=== PATIENT | male | born 1960 | race Caucasian/White ===

== ENCOUNTER → 2016-06-09 | Outpatient (CLI) | payer BC ==
[~2016-06-09] MED LIST: MULTTAB58 PO
--- NOTE | 2016-06-09 15:22 | DIAGNOSTIC IMAGING REPORT ---
CHEST 2 VIEWS ROUTINE HISTORY: FEVER COMPARISON: None. FINDINGS: A streaky/hazy opacity within the base of the left lower lobe. The right lung is clear. The heart is normal in size. No pleural effusions. No pneumothorax. IMPRESSION: Streaky/hazy opacity at the base of the left lower lobe which likely represents a developing pneumonia. Recommend one month chest x-ray follow-up to ensure resolution. Electronically signed by: Landen Bone M.D. 06/09/2016 3:20 PM Dictated Date/Time: 06/09/2016 3:17 PM
== END | disposition home or self-care (01) ==
LOC: C.RADPV 14:45
PROVIDERS: ATTEND Family Medicine
DX: R50.9 Fever, unspecified (principal)

== ENCOUNTER → 2016-08-07 | Outpatient (CLI) | payer BC ==
--- NOTE | 2016-08-07 14:58 | DIAGNOSTIC IMAGING REPORT ---
CHEST 2 VIEWS ROUTINE CLINICAL HISTORY: Opacity of lung on imaging study2 mo f/u dyspnea COMPARISON STUDY: 06/09/2016 FINDINGS: Lungs are now considered clear. The potential finding left lung base is no longer identified. No evidence for cardiac enlargement. Diaphragms smooth. IMPRESSION: Negative study of the chest. Improved from the prior study. Electronically signed by: Gentry Fisher M.D. 08/07/2016 2:56 PM Dictated Date/Time: 08/07/2016 2:56 PM
== END | disposition home or self-care (01) ==
LOC: C.RADPV 14:28
PROVIDERS: ATTEND Family Medicine
DX: R91.8 Other nonspecific abnormal finding of lung field (principal)

== ENCOUNTER 2023-07-19 18:51 | Inpatient (IN) ==
[2023-07-19 19:22] LABS: Basophils # (auto) 0.03 K/uL (0.00-0.20); Basophils % (auto) 0.3 %; Eosinophils # (auto) 0.24 K/uL (0.00-0.50); Eosinophils % (auto) 2.7 %; Hematocrit (blood only) 43.6 % (42.0-52.0); Hemoglobin 14.7 g/dl (14.0-18.0); Immature Granulocytes # (auto) 0.04 K/uL (0.01-0.20); Immature Granulocytes % (auto) 0.4 %; Lymphocytes # (auto) 1.34 K/uL (1.20-3.40); Lymphocytes % (auto) 14.9 %; Mean Corpuscular Hemoglobin 30.2 pg (25.0-34.0); Mean Corpuscular Hgb Conc 33.7 g/dL (32.0-36.0); Mean Corpuscular Volume 89.7 fL (80.0-100.0); Mean Platelet Volume 9.7 fL (9.4-12.4); Monocytes # (auto) 1.05 K/uL (0.11-0.59); Monocytes % (auto) 11.7 %; Neutrophils # (auto) 6.27 K/uL (1.40-6.50); Platelet Count 189 K/uL (130-400); RDW Coefficient of Variation 11.7 % (11.5-14.5); RDW Standard Deviation 38.6 fL (36.4-46.3); Red Blood Count 4.86 M/uL (4.70-6.10); White Blood Count 8.97 K/ul (4.8-10.8)
[2023-07-19 19:38] LABS: Albumin Globulin Ratio 1.5 (0.9-2); Albumin Level 4.4 gm/dl (3.4-5.0); BUN Creatinine Ratio 15.1 (10-20); Bilirubin,Total 0.9 mg/dl (0.2-1.0); Calcium 9.3 mg/dl (8.6-10.3); Creatinine Clr Calc Pharmacy 94.5 ml/min; Est GFR (African American) 100.9 ml/min; Est GFR (Non-African American) 87.1 ml/min; Total Protein 7.4 gm/dl (6.0-8.3)
[2023-07-19 19:44] LABS: Troponin I High Sensitivity 3.7 pg/ml (0-20)
[2023-07-19 19:51] LABS: Partial Thromboplastin Ratio 0.9; Partial Thromboplastin Time 24 Seconds (21-31); Prothrombin Time 10.9 Seconds (9.0-12.0)
--- NOTE | 2023-07-19 20:16 | Emergency Department Note ---
<Statement entered by Damion Bland MD - 07/20/23 00:48> Critical Care: I have personally spent 45 minutes of critical care time in direct management of this patient. This includes bedside care, interpretation of diagnostic studies, and testing, discussion with consultants, patient, and family members, and other require inpatient management activities. This 45 minutes is in excess of all separately billable procedures. History of Present Illness General Chief complaint: Rib Injury/Pain Stated complaint: RIB PAIN LET SIDE, SUDDEN ONSET Time Seen by Provider: 07/19/23 19:46 History of Present Illness Maximum Pain Intensity: 4 62-year-old male presents to the emergency department for evaluation of left- sided chest pain. Patient states he had laparoscopic right inguinal hernia repair performed on 07/14/[address] Deluna. He states that the procedure went well without any complication. He notes since the surgery some mild abdominal discomfort and bloating from the gas but was improving. He began doing some mild light exercise/walking over the last few days. He states when he got back this afternoon he noted pain in the left ribs that radiated into his back. It is worse with inhalation. He denies overt chest pain or shortness of breath. Pain is sharp in nature. It does not radiate into the jaw or arm. Denies any worsening abdominal pain, fever/chills, nausea/vomiting, diarrhea/constipation, urinary symptoms. No blood in his urine or stool. He denies history of blood clots and is not on any blood thinner. He does report an abnormal EKG preoperatively and had a stress test performed which was normal. He was taking prescribed oxycodone for the first few days postop but switched to Advil the last few days and has not taken anything for pain today. Home Medications Medication Instructions Recorded Confirmed Type calcium carbonate 600 mg calcium 600 mg PO QAM 07/09/20 07/19/23 History (1,500 mg) tablet (Calcium) magnesium oxide 400 mg (241.3 mg 400 mg PO QAM 07/09/20 07/19/23 History magnesium) tablet multivitamin (Daily Multi-Vitamin 1 tab PO QAM 07/09/20 07/19/23 History tablet) omega-3 fatty acids 1,000 mg 1,000 mg PO QAM 07/09/20 07/19/23 History capsule lorazepam 0.5 mg tablet (Ativan) 0.5 mg PO DAILY PRN anxiety #25 10/06/22 07/19/23 Rx tabs fluticasone propionate 50 1 spray intranasal BID #15.8 mL 12/09/22 07/19/23 Rx mcg/actuation nasal spray,suspension (Flonase Allergy Relief) oxycodone 5 mg tablet 5 - 10 mg (1 - 2 x 5 mg) PO 07/14/23 07/19/23 Rx .[id number] PRN pain, for initial therapy, max 6 tabs per day #15 tabs atorvastatin 40 mg tablet 40 mg PO HS 07/19/23 07/19/23 History Allergies Allergy/AdvReac Type Severity Reaction Status Date / Time No Known Allergies Allergy Verified 07/19/23 22:11 Past Med/Surg History Medical History Raynaud's disease Bulging lumbar disc hx History of basal cell carcinoma Anxiety Reducible right inguinal hernia Hyperlipidemia Surgical History H/O right inguinal hernia repair (07/14/23) Robotic Assisted Right Laparoscopic Inguinal Hernia Repair with Mesh(Right) - Cecil Deluna, , FACS H/O colonoscopy Status post Mohs surgery for basal cell carcinoma Family History Mother Ovarian cancer Father Stroke Diabetes Other Hypertension No family history of adverse response to anesthesia No family history of bleeding disorder Denies family history of Prostate cancer Myocardial infarction Breast cancer Colorectal cancer Social History Smoking Status: Never smoker Second Hand Exposure: No; Do You Dip or Chew Tobacco: No; Hx Alcohol Use: No Hx Substance Use: No Preferred Language: Faroese Communication Ability: Effective Visual Impairment: No Limitations Hearing Ability: Normal Stick Feeder Required: No Beliefs That Will Affect Care: None marital status: Current Living Situation: Spouse and Family Current Living Situation Comment: with son and 2 cats current occupational status: employed current occupation: [employer] How many Children do You have: 2 Other Information That Helps Us Care for You: No Feels Safe at Home: Yes Safety Concerns: Feels Safe At This Time Childhood Exposure to Second-Hand Smoke: No Diet: regular caffeine: Yes (tea) Dental Care, Regularly: Yes Physical Activity Frequency: Daily Seatbelt Use: always Sunscreen Use: Yes Assistive Devices: Glasses Physical Exam Vital Signs Vital Signs - 24 hr 07/19/23 18:55 07/19/23 21:51 07/19/23 21:52 Temperature 36.7 C Temperature Source Temporal Artery Scan Pulse Rate 74 72 72 Pulse Rate from SpO2 Sensor 74 Respiratory Rate 20 22 Respiratory Effort / Characteristics Non-Labored Spontaneous Respiratory Depth Normal Blood Pressure 169/89 H 157/95 H Blood Pressure Mean 115 115 Pulse Oximetry 97 98 Oxygen Delivery Method Room Air Room Air Sepsis Recent Fever Within 48 Hours No Sepsis New/Unexplained Change in Mental Status No Sepsis Action Taken by Nursing No Action Required 07/19/23 22:00 07/19/23 22:30 07/19/23 23:00 Temperature Temperature Source Pulse Rate 80 63 74 Pulse Rate from SpO2 Sensor 80 63 75 Respiratory Rate 20 20 20 Respiratory Effort / Characteristics Respiratory Depth Blood Pressure 198/104 H 162/86 H 179/95 H Blood Pressure Mean 135 111 123 Pulse Oximetry 98 97 99 Oxygen Delivery Method Room Air Room Air Room Air Sepsis Recent Fever Within 48 Hours Sepsis New/Unexplained Change in Mental Status Sepsis Action Taken by Nursing Constitutional: alert and oriented x3. no acute distress. nontoxic HEENT: normocephalic, atraumatic. normal conjunctiva.PERRLA. EOM's grossly intact. Neck: neck is supple, nontender. Respiratory: lungs are clear to auscultation without wheezes, rhonchi, or rales bilaterally. equal chest rise. normal respiratory effort, no accessory muscle use. No reproducible chest wall or rib tenderness Cardiovascular: normal heart sounds without murmur. regular rate and rhythm. GI: abdomen is soft, mildly distended. Nontender. No palpable masses. No rebound tenderness or guarding. No CVA tenderness. Laparoscopic incisions well approximated with skin glue and healing appropriately. No signs of infection. MSK: moves all 4 extremities spontaneously Peripheral vascular: extremities warm and well perfused with palpable pulses. Psych:appropriate mood and affect. Course Administered Medications Heparin Sodium/Dextrose (Heparin Sodium/Dextrose) 25,000 units in 500 mls @ 30 mls/hr IV .[id number] [facility]; Protocol Stop: 08/18/23 23:14 Last Admin: 07/19/23 23:34 Dose: 1,500 units/hr, 30 mls/hr Documented By: MIKAEL Co-signed By: DIAMANTE Morphine Sulfate (Morphine Sulfate 2 Mg/Ml Carp) 2 mg IV Q3H PRN PRN Reason: Pain (1,2,3,4,5) & Pre PT Stop: 08/02/23 23:44 Last Admin: 07/19/23 23:51 Dose: 2 mg Documented By: MIKAEL Discontinued Medications Heparin Sodium (Porcine) (Heparin Sod (Porcine) 1000 Unit/Ml) 7,000 units IV NOW ONE Stop: 07/19/23 23:16 Last Admin: 07/19/23 23:33 Dose: 7,000 units Documented By: MIKAEL Co-signed By: DIAMANTE Heparin Sodium/Dextrose (Heparin Iv Adult Wt-Based Standard W/ Initial Bolus Protocol) 1 each IV NOW STA; Protocol Stop: 07/19/23 22:54 Last Admin: 07/19/23 23:34 Dose: Not Given Documented By: MIKAEL Sodium Chloride (Nss) 500 mls @ 999 mls/hr IV .Q31M ONE Stop: 07/19/23 21:47 Last Infusion: 07/19/23 22:47 Dose: Infused Documented By: Admin: 07/19/23 21:56 Dose: 999 mls/hr Documented By: MIKAEL Ioversol (Optiray 350 500ml) 115 ml IV ONCE ONE Stop: 07/19/23 20:30 Last Admin: 07/19/23 20:29 Dose: 115 ml Documented By: SEAN Morphine Sulfate (Morphine Sulfate 4 Mg/Ml 1 Ml Carp\Vial) 4 mg IV NOW STA Stop: 07/19/23 21:38 Last Admin: 07/19/23 21:56 Dose: 4 mg Documented By: MIKAEL Medical Decision Making Differential Diagnosis Cardiac ischemia, aortic dissection, pulmonary embolism, pneumothorax, pneumonia, pericarditis, myocarditis, esophageal rupture, GERD, cholecystitis, pancreatitis, musculoskeletal, as well as other pathologies. Laboratory Data Attestation: I reviewed the patient's lab results. 07/19/23 19:00 07/19/23 19:00 Lab Results 07/19/23 Range/Units 19:00 WBC 8.97 (4.8-10.8) K/ul RBC 4.86 (4.70-6.10) M/uL Hgb 14.7 (14.0-18.0) g/dl Hct 43.6 (42.0-52.0) % MCV 89.7 (80.0-100.0) fL MCH 30.2 (25.0-34.0) pg MCHC 33.7 (32.0-36.0) g/dL RDW Std Deviation 38.6 (36.4-46.3) fL RDW Coeff of Jaden 11.7 (11.5-14.5) % Plt Count 189 (130-400) K/uL MPV 9.7 (9.4-12.4) fL Immature Gran % (Auto) 0.4 % Neut % (Auto) 70.0 % Lymph % (Auto) 14.9 % Pitkin % (Auto) 11.7 % Eos % (Auto) 2.7 % Baso % (Auto) 0.3 % Neut # (Auto) 6.27 (1.40-6.50) K/uL Lymph # (Auto) 1.34 (1.20-3.40) K/uL Pitkin # (Auto) 1.05 H (0.11-0.59) K/uL Eos # (Auto) 0.24 (0.00-0.50) K/uL Baso # (Auto) 0.03 (0.00-0.20) K/uL Immature Gran # (Auto) 0.04 (0.01-0.20) K/uL PT 10.9 (9.0-12.0) Seconds INR 1.0 (0.9-1.1) APTT 24 (21-31) Seconds PTT Ratio 0.9 Sodium 137 (136-145) mmol/L Potassium 4.0 (3.5-5.1) mmol/L Chloride 101 (98-107) mmol/L Carbon Dioxide 29 (21-32) mmol/L Anion Gap 7 (3-11) BUN 14 (6-23) mg/dl Creatinine 0.93 (0.6-1.4) mg/dl Est Cr Clr Drug Dosing 94.5 ml/min Est GFR ( Amer) 100.9 ml/min Est GFR (Non-Af Amer) 87.1 ml/min BUN/Creatinine Ratio 15.1 (10-20) Glucose 98 (70-99(Fasting)) mg/dl Calcium 9.3 (8.6-10.3) mg/dl Total Bilirubin 0.9 (0.2-1.0) mg/dl AST 47 H (13-39) U/L ALT 66 H (7-52) U/L Alkaline Phosphatase 114 H (34-104) U/L Troponin I High Sens 3.7 (0-20) pg/ml Total Protein 7.4 (6.0-8.3) gm/dl Albumin 4.4 (3.4-5.0) gm/dl Globulin 3.0 (2.5-4.0) gm/dl Albumin/Globulin Ratio 1.5 (0.9-2) Lipase 12 (11-82) U/L Imaging Data Radiologist's Impression: Chest CTA 07/19/23 20:06 CR Exam(s): CTA CHEST IV Amt: 115ml optiray 350 EXAM: CT Angiography Chest With Intravenous Contrast CLINICAL HISTORY: Reason for exam: PE. TECHNIQUE: Axial computed tomographic angiography images of the chest with intravenous contrast. CTDI is 19.59 mGy and DLP is 627.64 mGy-cm. Automated exposure control was utilized for the study. A dose lowering technique was utilized adhering to the principles of ALARA. MIP reconstructed images were created and reviewed. COMPARISON: Chest radiograph 07/19/2023. FINDINGS: Pulmonary arteries: Scattered bilateral pulmonary emboli extending most proximally to the right middle lobar artery. Aorta: No acute findings. No thoracic aortic aneurysm. Lungs: Opacity in the right middle lobe. Pleural space: Unremarkable. No significant effusion. No pneumothorax. Heart: Unremarkable. No cardiomegaly. No significant pericardial effusion. No evidence of RV dysfunction. Bones/joints: No acute fracture. No dislocation. Soft tissues: Unremarkable. Lymph nodes: Unremarkable. No enlarged lymph nodes. IMPRESSION: 1. Scattered bilateral pulmonary emboli extending most proximally to the right middle lobar artery. No evidence of right heart strain. 2. Opacity in the right middle lobe. This may represent a pulmonary infarction. Communications: Call Doctor Pulmonary Embolism Electronically signed by: Armando Vale MD 07/19/23 22:34 PM MDM Narrative 62-year-old male who presents to the emergency department for evaluation of left pleuritic chest pain. Review of pertinent visits and past medical history performed. Vital signs in ED demonstrate hypertensive otherwise within normal limits, afebrile. Patient was seen and evaluated as above. Initial critical pathway orders were placed during a high-volume time while patient was evaluated in triage. IV access was established and labs and imaging were obtained. CBC without leukocytosis or acute anemia. CMP without significant electrolyte abnormalities. Renal function within normal limits. Mild transaminitis, AST 47, ALT 66, alk phos 114. Total bilirubin 0.9. Lipase within normal limits. High-sensitivity troponin nonactionable. EKG per my interpretation demonstrates normal sinus rhythm at a rate of 69 bpm. MS interval 218 MS. Persistent T wave inversion in lead III, aVF when compared to ECG from 07/02/2023. No other changes or ST abnormalities. Chest x-ray unremarkable. Upon my initial evaluation, labs and chest x-ray had resulted. Patient was evaluated in the room and appeared in no acute distress and was nontoxic. They were updated on labs and chest x-ray to this point which are reassuring. He continues to experience significant left-sided chest pain with inhalation. He initially declined pain medication. He was hydrated with 500 mL normal saline fluids. In regards to his mild transaminitis, he denies any abdominal pain, no focal tenderness on exam. No excessive Tylenol use or viral symptoms noted. Given pleuritic chest pain and recent surgical intervention, discussed CT of the chest to rule out pulmonary embolism. He was agreeable to plan. This was performed and demonstrates scattered bilateral pulmonary emboli extending most proximally to the right middle lobar artery. There is no evidence of right heart strain. There is an opacity of the right middle lobe which may represent a pulmonary infarct. Following CT of the chest, patient notes worsening left-sided chest pain and was requesting something for pain. 4 mg IV morphine ordered which did help to alleviate his symptoms. They were updated about CT findings. He has bilateral scattered PEs which is likely the source to his symptoms. There is no evidence of right heart strain. He is hemodynamically stable. Weight-based heparin drip with bolus ordered. Discussed admission to the hospital for anticoagulation and observation. He was agreeable to plan. Case was discussed with hospitalist, Dr. Ellis, who graciously accepted patient to her service for further management. He was admitted in stable condition. Case was discussed with ED attending, Dr. Bland, who agrees with workup and treatment plan Impression & Plan Pulmonary embolism, bilateral, Chest pain, pleuritic, Transaminitis Discharge Plan Visit Data Chief Complaint: Rib Injury/Pain Stated Complaint: RIB PAIN LET SIDE, SUDDEN ONSET ED Provider: Damion Bland ED Midlevel Provider: Soledad Davis Discharge Problem: Pulmonary embolism, bilateral, Chest pain, pleuritic, Transaminitis Patient Disposition: Admitted As Inpatient Discharge Instructions Interventions: ED Discharge Assessment Last Done: 07/19/23 23:45
[2023-07-19] MEDS: OPTIRAY 350 500ml IV ONE (20:29)
[2023-07-19] MEDS: MoRPHine SULFATE 4 MG/ML 1 ML CARP\\VIAL IV STA (21:56)
[2023-07-19] MEDS: SODIUM CHLORIDE 0.9% 500 ML IV ONE (21:56)
--- NOTE | 2023-07-19 22:35 | CT Scan Report ---
Exam(s): CTA CHEST IV Amt: 115ml optiray 350 EXAM: CT Angiography Chest With Intravenous Contrast CLINICAL HISTORY: Reason for exam: PE. TECHNIQUE: Axial computed tomographic angiography images of the chest with intravenous contrast. CTDI is 19.59 mGy and DLP is 627.64 mGy-cm. Automated exposure control was utilized for the study. A dose lowering technique was utilized adhering to the principles of ALARA. MIP reconstructed images were created and reviewed. COMPARISON: Chest radiograph 07/19/2023. FINDINGS: Pulmonary arteries: Scattered bilateral pulmonary emboli extending most proximally to the right middle lobar artery. Aorta: No acute findings. No thoracic aortic aneurysm. Lungs: Opacity in the right middle lobe. Pleural space: Unremarkable. No significant effusion. No pneumothorax. Heart: Unremarkable. No cardiomegaly. No significant pericardial effusion. No evidence of RV dysfunction. Bones/joints: No acute fracture. No dislocation. Soft tissues: Unremarkable. Lymph nodes: Unremarkable. No enlarged lymph nodes. IMPRESSION: 1. Scattered bilateral pulmonary emboli extending most proximally to the right middle lobar artery. No evidence of right heart strain. 2. Opacity in the right middle lobe. This may represent a pulmonary infarction. Communications: Call Doctor Pulmonary Embolism Electronically signed by: Armando Vale MD 07/19/23 22:34 PM
[2023-07-19] MEDS ORDERED: HEPARIN SOD (PORCINE) 1000 UNIT/ML IV ONE (23:09)
--- NOTE | 2023-07-19 23:11 | History & Physical Report ---
Date of Service July 19, 2023 Assessment & Plan (1) Pulmonary embolism, bilateral: Plan: 62yo male with history of HLP s/p robotic assisted inguinal hernia repair POD #5 presenting with acute onset pleuritic pain in the left side. Patient found to have bilateral PEs, possible pulmonary infarct on the right. Patient is afebrile, HD stable, adequate oxygenation on room air. PESI Class II - Low Risk. -Admit to Medical with telemetry -Continue heparin drip with transition to DOAC agent in AM. Likely will need 3- 6 months of anticoagulation for first episode of VTE - most likely provoked in the setting of recent surgical intervention -Morphine PRN pain -If worsening pain would consider imaging of the abdomen/pelvis as well (2) Transaminitis: Plan: Patient with mild elevation of AST=47, ALT=66 and EB=324. Tbili is normal as are platelets and INR. No EtOH or Tylenol use. Unclear etiology. No prior liver concerns -Repeat LFTs in AM. If increasing would pursue further workup to include imaging, acute hepatitis panel, acetaminophen level, ferritin, ASHOK, ASmAb, etc (3) Right inguinal hernia: Plan: No pain at the surgical site. Wounds appear to be healing well -Continue pain control as needed (4) Hyperlipidemia: Plan: Chronic. Patient on Atorvastatin 40mg po qHS -Hold for now pending repeat LFTs History of Present Illness Chief Complaint: left sided abdominal pain Primary Care Provider: Ernestine Aguillon MD Hakeem Bashir is a pleasant 62yo male with history of HLP presenting with bi lateral PEs. Patient had robotic assisted right laparoscopic inguinal hernia repair performed by Dr. Deluna on 07/14/23. The surgery went well with no complications identified. Patient reports he has been doing well overall at home. He has been eating and drinking well, ambulating without difficulty and having normal bowel movements. He took Oxycodone for pain relief for the first 2-3 days post- op then was taking Advil occasionally. Today (07/19/23) he did not take anything for pain. Around 1800 patient returned from a walk and sat down in a chair and developed acute onset left sided abdominal and side pain. He reports this pain felt sharp and was worsened with deep breathing. He had some very slight cramping in his left calf but otherwise no complaints. He denies chest pain, palpitations, dizziness, syncope. Denies nausea, vomiting or diarrhea. In the ER he is afebrile, HD stable, NAD. ER Course: Morphine 4mg IV NSS x 500mL Heparin bolus and drip Morphine 2mg IV Allergies Allergy/AdvReac Type Severity Reaction Status Date / Time No Known Allergies Allergy Verified 07/19/23 22:11 Home Medications Medication Instructions Recorded Confirmed Type calcium carbonate 600 mg calcium 600 mg PO QAM 07/09/20 07/19/23 History (1,500 mg) tablet (Calcium) magnesium oxide 400 mg (241.3 mg 400 mg PO QAM 07/09/20 07/19/23 History magnesium) tablet multivitamin (Daily Multi-Vitamin 1 tab PO QAM 07/09/20 07/19/23 History tablet) omega-3 fatty acids 1,000 mg 1,000 mg PO QAM 07/09/20 07/19/23 History capsule lorazepam 0.5 mg tablet (Ativan) 0.5 mg PO DAILY PRN anxiety #25 10/06/22 07/19/23 Rx tabs fluticasone propionate 50 1 spray intranasal BID #15.8 mL 12/09/22 07/19/23 Rx mcg/actuation nasal spray,suspension (Flonase Allergy Relief) oxycodone 5 mg tablet 5 - 10 mg (1 - 2 x 5 mg) PO 07/14/23 07/19/23 Rx .[id number] PRN pain, for initial therapy, max 6 tabs per day #15 tabs atorvastatin 40 mg tablet 40 mg PO HS 07/19/23 07/19/23 History Past Med/Surg History Medical History Raynaud's disease Bulging lumbar disc hx History of basal cell carcinoma Anxiety Reducible right inguinal hernia Hyperlipidemia Surgical History H/O right inguinal hernia repair (07/14/23) Robotic Assisted Right Laparoscopic Inguinal Hernia Repair with Mesh(Right) - Cecil Deluna DO, FACS H/O colonoscopy Status post Mohs surgery for basal cell carcinoma Family History Mother Ovarian cancer Father Stroke Diabetes Other Hypertension No family history of adverse response to anesthesia No family history of bleeding disorder Denies family history of Prostate cancer Myocardial infarction Breast cancer Colorectal cancer Social History Smoking Status: Never smoker Second Hand Exposure: No; Do You Dip or Chew Tobacco: No; Hx Alcohol Use: No Hx Substance Use: No Preferred Language: Thai Communication Ability: Effective Visual Impairment: No Limitations Hearing Ability: Normal 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 Beliefs That Will Affect Care: None marital status: Current Living Situation: Spouse and Family Current Living Situation Comment: with son and 2 cats current occupational status: employed current occupation: [employer] How many Children do You have: 2 Other Information That Helps Us Care for You: No Feels Safe at Home: Yes Safety Concerns: Feels Safe At This Time Childhood Exposure to Second-Hand Smoke: No Diet: regular caffeine: Yes (tea) Dental Care, Regularly: Yes Physical Activity Frequency: Daily Seatbelt Use: always Sunscreen Use: Yes Assistive Devices: Glasses Review of Systems Review of Systems: All systems reviewed & are unremarkable except as noted in HPI & below Physical Exam Physical Exam: General: patient resting comfortably, NAD, non-toxic in appearance, AA&O x 4 Skin: warm, dry, no rashes or lesions HEENT: NC/AT, PERRL, EOMI, anicteric sclera, conjunctiva without injection, external ear normal to inspection and nontender, nares patent, moist mucus membranes, dentition intact, no oropharyngeal lesions, neck supple, trachea midline, no LAD, no thyromegaly, no JVD Heart: +S1/S2, regular, no m/r/g Lungs: equal air entry bilaterally, no rales/rhonchi/wheezes Abd: +BS, soft, NT/ND, no masses/organomegaly/ascites, surgical sites well approximated with no bleeding/drainage/erythema or dehiscence Ext: warm, 2+ pulses in UE/LE bilaterally, no clubbing/cyanosis or edema, very mild tenderness in left calf Neuro: nonfocal, patient AA&O x 4, speech intact, no facial droop, moving all extremities on command with equal strength 5/5 Results & Data Results & Data Vital Signs (Past 12 Hours) Vital Signs Temp Pulse Resp BP Pulse Ox O2 Del Method 03/25/24 23:00 74 20 179/95 H 99 Room Air 07/19/23 22:30 63 20 162/86 H 97 Room Air 07/19/23 22:00 80 20 198/104 H 98 Room Air 07/19/23 21:52 72 22 157/95 H 98 Room Air 07/19/23 21:51 72 07/19/23 18:55 36.7 C 74 20 169/89 H 97 Room Air Laboratory Results Laboratory Results WBC 8.97 K/ul (4.8-10.8) 07/19/23 19:00 RBC 4.86 M/uL (4.70-6.10) 07/19/23 19:00 Hgb 14.7 g/dl (14.0-18.0) 07/19/23 19:00 Hct 43.6 % (42.0-52.0) 07/19/23 19:00 MCV 89.7 fL (80.0-100.0) 07/19/23 19:00 MCH 30.2 pg (25.0-34.0) 07/19/23 19:00 MCHC 33.7 g/dL (32.0-36.0) 07/19/23 19:00 RDW Std Deviation 38.6 fL (36.4-46.3) 07/19/23 19:00 RDW Coeff of Jaden 11.7 % (11.5-14.5) 07/19/23 19:00 Plt Count 189 K/uL (130-400) 07/19/23 19:00 MPV 9.7 fL (9.4-12.4) 07/19/23 19:00 Immature Gran % (Auto) 0.4 % 07/19/23 19:00 Neut % (Auto) 70.0 % 07/19/23 19:00 Lymph % (Auto) 14.9 % 07/19/23 19:00 Elk % (Auto) 11.7 % 07/19/23 19:00 Eos % (Auto) 2.7 % 07/19/23 19:00 Baso % (Auto) 0.3 % 07/19/23 19:00 Neut # (Auto) 6.27 K/uL (1.40-6.50) 07/19/23 19:00 Lymph # (Auto) 1.34 K/uL (1.20-3.40) 07/19/23 19:00 Elk # (Auto) 1.05 K/uL (0.11-0.59) H 07/19/23 19:00 Eos # (Auto) 0.24 K/uL (0.00-0.50) 07/19/23 19:00 Baso # (Auto) 0.03 K/uL (0.00-0.20) 07/19/23 19:00 Immature Gran # (Auto) 0.04 K/uL (0.01-0.20) 07/19/23 19:00 PT 10.9 Seconds (9.0-12.0) 07/19/23 19:00 INR 1.0 (0.9-1.1) 07/19/23 19:00 APTT 24 Seconds (21-31) 07/19/23 19:00 PTT Ratio 0.9 07/19/23 19:00 Sodium 137 mmol/L (136-145) 07/19/23 19:00 Potassium 4.0 mmol/L (3.5-5.1) 07/19/23 19:00 Chloride 101 mmol/L (98-107) 07/19/23 19:00 Carbon Dioxide 29 mmol/L (21-32) 07/19/23 19:00 Anion Gap 7 (3-11) 07/19/23 19:00 BUN 14 mg/dl (6-23) 07/19/23 19:00 Creatinine 0.93 mg/dl (0.6-1.4) 07/19/23 19:00 Est Cr Clr Drug Dosing 94.5 ml/min 07/19/23 19:00 Est GFR ( Amer) 100.9 ml/min 07/19/23 19:00 Est GFR (Non-Af Amer) 87.1 ml/min 07/19/23 19:00 BUN/Creatinine Ratio 15.1 (10-20) 07/19/23 19:00 Glucose 98 mg/dl (70-99(Fasting)) 07/19/23 19:00 Calcium 9.3 mg/dl (8.6-10.3) 07/19/23 19:00 Total Bilirubin 0.9 mg/dl (0.2-1.0) 07/19/23 19:00 AST 47 U/L (13-39) H 07/19/23 19:00 ALT 66 U/L (7-52) H 07/19/23 19:00 Alkaline Phosphatase 114 U/L (34-104) H 07/19/23 19:00 Troponin I High Sens 3.7 pg/ml (0-20) 07/19/23 19:00 Total Protein 7.4 gm/dl (6.0-8.3) 07/19/23 19:00 Albumin 4.4 gm/dl (3.4-5.0) 07/19/23 19:00 Globulin 3.0 gm/dl (2.5-4.0) 07/19/23 19:00 Albumin/Globulin Ratio 1.5 (0.9-2) 07/19/23 19:00 Lipase 12 U/L (11-82) 07/19/23 19:00 Impressions Chest CTA 07/19/23 20:06 CR Exam(s): CTA CHEST IV Amt: 115ml optiray 350 EXAM: CT Angiography Chest With Intravenous Contrast CLINICAL HISTORY: Reason for exam: PE. TECHNIQUE: Axial computed tomographic angiography images of the chest with intravenous contrast. CTDI is 19.59 mGy and DLP is 627.64 mGy-cm. Automated exposure control was utilized for the study. A dose lowering technique was utilized adhering to the principles of ALARA. MIP reconstructed images were created and reviewed. COMPARISON: Chest radiograph 07/19/2023. FINDINGS: Pulmonary arteries: Scattered bilateral pulmonary emboli extending most proximally to the right middle lobar artery. Aorta: No acute findings. No thoracic aortic aneurysm. Lungs: Opacity in the right middle lobe. Pleural space: Unremarkable. No significant effusion. No pneumothorax. Heart: Unremarkable. No cardiomegaly. No significant pericardial effusion. No evidence of RV dysfunction. Bones/joints: No acute fracture. No dislocation. Soft tissues: Unremarkable. Lymph nodes: Unremarkable. No enlarged lymph nodes. IMPRESSION: 1. Scattered bilateral pulmonary emboli extending most proximally to the right middle lobar artery. No evidence of right heart strain. 2. Opacity in the right middle lobe. This may represent a pulmonary infarction. Communications: Call Doctor Pulmonary Embolism Electronically signed by: Armando Vale MD 07/19/23 22:34 PM ECG Additional Comments: EKG per my evaluation reveals SR at 69bpm, 1st degree AV block with PC=195, QRS=86, JHn=455. No acute ischemic changes. Similar to prior study from 07/02/23 (independently viewed) PG Care Time/CCT Total # of Minutes Spent Total Time Spent with Patient: Total time spent is greater than 50% in coordination of care (as documented) at patient's floor/unit and/or counseling patient: Coding Level of Care Code 23690 INT INP/OBS CARE 2/55MIN Diagnoses Pulmonary embolism, bilateral I26.99 Transaminitis R74.01 Right inguinal hernia K40.90 Hyperlipidemia E78.5
[2023-07-19] MEDS: HEPARIN SOD (PORCINE) 1000 UNIT/ML IV ONE (23:33)
[2023-07-19] MEDS: Heparin IV Adult Wt-Based Standard w/ INITIAL Bolus Protocol IV STA (23:34)
[2023-07-19] MEDS: HEPARIN SODIUM/DEXTROSE 25,000 UNITS/500 ML BAG IV SCH (23:34)
[2023-07-19] MEDS ORDERED: DOCUSATE SODIUM 100 MG CAP PO PRN (23:45)
[2023-07-19] MEDS ORDERED: LORazepam 0.5 MG TAB PO PRN (23:45)
[2023-07-19] MEDS ORDERED: POLYETHYLENE (MIRALAX) 17 GM PACK PO PRN (23:45)
[2023-07-19] MEDS ORDERED: ONDANSETRON INJ 2 MG/ML 2 ML VIAL IV PRN (23:45)
[2023-07-19] MEDS: MoRPHine SULFATE 2 MG/ML CARP IV PRN (23:51)
[2023-07-20 04:04] LABS: Hematocrit (blood only) 37.9 % (42.0-52.0); Hemoglobin 12.7 g/dl (14.0-18.0); Mean Corpuscular Hemoglobin 30.1 pg (25.0-34.0); Mean Corpuscular Hgb Conc 33.5 g/dL (32.0-36.0); Mean Corpuscular Volume 89.8 fL (80.0-100.0); Mean Platelet Volume 9.9 fL (9.4-12.4); Platelet Count 173 K/uL (130-400); RDW Coefficient of Variation 11.7 % (11.5-14.5); RDW Standard Deviation 37.8 fL (36.4-46.3); Red Blood Count 4.22 M/uL (4.70-6.10); White Blood Count 8.26 K/ul (4.8-10.8)
[2023-07-20 04:15] LABS: Albumin Level 3.7 gm/dl (3.4-5.0); BUN Creatinine Ratio 16.9 (10-20); Bilirubin Direct 0.2 mg/dl (0-0.2); Bilirubin,Total 0.7 mg/dl (0.2-1.0); Calcium 8.5 mg/dl (8.6-10.3); Creatinine Clr Calc Pharmacy 105.9 ml/min; Est GFR (African American) 108.5 ml/min; Est GFR (Non-African American) 93.6 ml/min; Potassium 3.7 mmol/L (3.5-5.1); Total Protein 6.3 gm/dl (6.0-8.3)
[2023-07-20 04:40] LABS: ANTI-Xa, UFH(UnfractionatedHep 1.05 IU/ml (0.3-0.7)
[2023-07-20] MEDS: MoRPHine SULFATE 4 MG/ML 1 ML CARP\\VIAL IV PRN (05:10)
--- NOTE | 2023-07-20 06:54 | Hospitalist Progress Note ---
Date of Service July 20, 2023 Assessment & Plan (1) Pulmonary embolism, bilateral: (2) Chest pain, pleuritic: (3) Transaminitis: (4) Hyperlipidemia: (5) S/P inguinal hernia repair: Plan 62yo male with PMHx of HLP/HLD s/p robotic assisted inguinal hernia repair POD #5 presenting with acute onset pleuritic pain in the left side. Patient found to have bilateral PEs, possible pulmonary infarct on the right. 1) Pulmonary embolism, bilateral: Patient is afebrile, HD stable, adequate oxygenation on room air. PESI (Pulm Emb Severity Index) Class II - Low Risk. - BPs as high as 198/104 last night 2/2 pain likely -Continue heparin drip with transition to DOAC agent in AM. Likely will need 3- 6 months of anticoagulation for first episode of VTE - most likely provoked in the setting of recent surgical intervention -Morphine PRN pain; Toradol, q6 hrs, 15 mg, BHARTI for pain; Tylenol, q4 hrs, 650 mg, BHARTI for pain -If worsening pain would consider imaging of the abdomen/pelvis as well (2) Transaminitis - resolved (AST, 28 and ALT, 48) Upon admission: mild elevation AST, 47 and ALT, 66 and AP, 114; TBili, normal; platelets and INR. - Unclear etiology. No prior liver concerns - If increasing, further workup to include imaging, acute hepatitis panel, acetaminophen level, ferritin, ASHOK, ASmAb, etc (3) Right inguinal hernia: No pain at the surgical site. Wounds appear to be healing well. Discharged on 07/14/23. -Continue pain control as needed: morphine sulfate, 4mg, IV, q3h, PRN; acetaminophen, 650 mg, PO, q4h, PRN (4) Hyperlipidemia Chronic. Patient on Atorvastatin 40mg po qHS -Held until repeated LFTs, consider re-starting today or tomorrow Code status: Full code Disposition: Med-Tele DVT Prophylaxis: Heparin drip; consider starting DOAC Admission and Anticipated Discharge Date Admission Date: July 19, 2023 Supervising Physician Co-Signing Physician Notes I personally examined the patient and verified all corbett points of history and exam, discussed case, and agree with decision making with Dr Hammond Still having a lot of pleuritic chest painfrequent, fairly intense. Morphine helped and lasted for about 3 hours. Extensive discussion with patient and on PE, management, etiology, etc. Answered all questions to the best my ability and to their satisfaction. Vitals noted, in general he is awake and alert moving slowly and appears to at times have rather sharp and stabbing chest discomfort on the left side of his chest. Breathing unlabored no accessory muscle use good effort. Skin shows no rashes no pallor or icterus. Neuro without focal deficits. PErisk of being recent surgery. Currently on heparintransition to [facility] ray. Home once his pain is better controlled. continue IV morphine, add scheduled Tylenol and Toradol. Otherwise as above. Subjective I saw the patient this morning and he stated that he continues to feel the pain intermittently quite severely (12/03/ in l. rib cage and l. clavicle area. Pt does not have any residual pain in r. groin area where he had the inguinal hernia surgery. Patient did state that he began to feel some l. calf pain but it would resolve with exercise or when he dorsiflexed his feet. Did not think much of it. Patient did state that he had no personal medical history of clots nor family history of clots, only that his father had 2 strokes when he was 60s (63 or so). Review of Systems Constitutional: no fever, no chills and no sweats Respiratory: + pain on inspiration; no cough and no h emoptysis Cardiovascular: + chest pain, + chest pain with activity and + radiating jaw, neck or arm pain; no palpitations, no lightheadedness and no calf pain Gastrointestinal: no abdominal pain, no nausea, no vomiting and no diarrhea/loose stools Genitourinary: no dysuria, no difficulty urinating or no urinary frequency Neurologic: no tingling, no numbness and no paresthesia Physical Exam Constitutional: WD/WN, vitals as above Respiratory: normal respiratory effort, lungs clear to auscultation Cardiovascular: RRR, no murmur, no edema Gastrointestinal (Abdomen): normal bowel sounds, soft, nontender, no hepatosplenomegaly Neurologic: moves all extremities and awake Speech / Cognition: normal speech and normal cognition Psychiatric: A+Ox3, euthymic affect Results & Data Results & Data Vital Signs (Past 12 Hours) Vital Signs Temp Pulse Pulse Resp BP BP Pulse Ox 07/20/23 03:30 36.8 C 59 L 20 151/77 H 96 07/20/23 00:43 69 07/20/23 00:00 77 23 167/89 H 98 07/19/23 23:58 07/19/23 23:58 37.0 C 07/19/23 23:45 65 22 153/84 H 98 07/19/23 23:00 74 20 179/95 H 99 07/19/23 22:30 63 20 162/86 H 97 07/19/23 22:00 80 20 198/104 H 98 07/19/23 21:52 72 22 157/95 H 98 07/19/23 21:51 72 07/19/23 18:55 36.7 C 74 20 169/89 H 97 O2 Del Method 07/20/23 03:30 Room Air 07/20/23 00:43 07/20/23 00:00 Room Air 07/19/23 23:58 Room Air 07/19/23 23:58 07/19/23 23:45 Room Air 07/19/23 23:00 Room Air 07/19/23 22:30 Room Air 07/19/23 22:00 Room Air 07/19/23 21:52 Room Air 07/19/23 21:51 07/19/23 18:55 Room Air
--- NOTE | 2023-07-20 07:49 | XRay Report ---
SINGLE VIEW CHEST CLINICAL HISTORY: Atypical chest pain FINDINGS: A PA chest radiograph is compared to study dated 07/02/2023. Correlation is made with chest C T dated 07/19/2023. The cardiomediastinal silhouette is unremarkable. There are left basilar opacities . The lungs and pleural spaces are otherwise clear. No pneumothorax is seen. The bony thorax is gross ly intact. IMPRESSION: Left basilar opacities likely a pulmonary infarct when correlated with today's chest CT. Clinical correlation will be required in radiograph follow-up to resolution is recommended. ACT 112: Negative or not required by law. Electronically signed by: Gerry Marina M.D. 07/20/2023 7:47 AM
[2023-07-20 11:21] LABS: ANTI-Xa, UFH(UnfractionatedHep 0.32 IU/ml (0.3-0.7)
--- NOTE | 2023-07-20 13:04 | Electrocardiogram Report ---
Test Reason : Blood Pressure : / mmHG Vent. Rate : 069 BPM Atrial Rate : 069 BPM P-R Int : 218 ms QRS Dur : 086 ms QT Int : 390 ms P-R-T Axes : 068 010 020 degrees QTc Int : 417 ms Sinus rhythm with 1st degree A-V block Otherwise normal ECG When compared with ECG of 02-JUL-2023 10:21, No significant change was found Confirmed by Bennie Savage ([id number]) on 07/20/2023 1:03:27 PM Referred By: REFERRED SELF Confirmed By:Bennie Savage
--- NOTE | 2023-07-20 13:35 | Hospitalist Progress Note ---
Date of Service July 20, 2023 Assessment & Plan (1) Pulmonary embolism, bilateral: Plan: 62 YO M with a PSH of robotic assisted inguinal hernia repair POD #6 who presented with pleuritic pain on the left side. On imaging, he was found to have bilateral PEs and possible pulmonary infarct on the right side. He is hemodynamically stable and has adequate oxygenation on room air. He is PESI (Pulmonary Embolism Severity Index) Class II, so low risk. - Predisposing factor of surgery. - Patient admitted to medical with telemetry. Hemodynamically stable PE. - Patient started on heparin drip last night in ED. - Transition should be made to a direct oral anticoagulant today for 3-6 months. Would recommend Apixaban (Eliquis). For Eliquis, PE treatment seems to be 10 mg twice per day for 7 days then 5 mg twice per day. - Morphine for PRN pain in addition to tylenol and toradol. - F/U with PCP - Monitor for recurrent thromboembolism speak about monitoring pain/cramps and chest pain (2) Transaminitis: Plan: - Mild elevation of AST, ALT, AP on 07/18 in the ED. Patient reported no ETOH or Tylenol Use - Today, LFTs repeated. AST, ALT, AP are all normal. (3) Hyperlipidemia: Plan: - Chronic - Patient on atorvastatin (4) S/P inguinal hernia repair: Plan: - No pain at site - Wounds healing well - Continue pain control as needed Plan Code status: Full code Disposition: Med-Tele DVT Prophylaxis: Starting DOAC Admission and Anticipated Discharge Date Admission Date: July 19, 2023 Subjective 62 YO M with a past surgical history of laparoscopic R inguinal repair on 07/14/23 presented to the ED on 07/18 for evaluation of left-sided chest pain. In the ER, the patient reported that the procedure went well without complication. Since surgery, he had noted some mild abdominal discomfort and bloating that was improving. He took oxycodone for two days following surgery and then stopped because he was feeling good. Over the last few days, he started doing some light exercise and walking. When he got home yesterday afternoon, he noted sharp pain in the left ribs that radiated into his back. It was worse with inhalation. He denied any overt chest pain or SOB. He did report abnormal EKG preoperatively but stress test which was normal. In ER, patient was afebrile and hemodynamically stable with adequate oxygenation on room air. Labs were normal in ER except for a mild transaminitis. On chest CT, scattered bilateral pulmonary emboli were noted extending most proximally to the R middle lobar artery and no evidence of R heart strain. Also, opacity in R middle lobe was noted which may represent a pulmonary infarction. He was deemed to be PESI Class II-Low Risk. Weight-based heparin drip with bolus were ordered along with IV morphine for pain. When speaking with the patients nurse in ER, she reported that the patient did well overnight. He did require some morphine for pain but was otherwise good. I spoke to patient at bedside. At the start of conversation, he reported that his pain was a 2/3 out of 10 but it did increase to a 7/8 towards the end of the c onversation. He said that the pain was also an 8/10 at 5 am but that the morphine did help. then He said his pain is still in his left ribs and radiates into his back. He has no SOB, but pain when breathing deeply or moving at all. He said that relatively, he did sleep well. He has not noticed any changes in his surgical scar and no current pain or issues with it. I confirmed that hes never had these symptoms before. He denied any personal or family history of blood clots and is not on any blood thinners. He did report that he had cramping on July 16 in his left calf but he said he does a lot of walking so did not think too much about it. When he was revisited in the afternoon, the patient was in significantly more pain. Review of Systems Review of Systems: Constitutional Negative for fever, chills, sweats, dizziness, unexpected sleep disturbances. Resp Negative for SOB and coughing. Positive for pain with inhalation and movement. CV Negative for palpitations and edema in lower extremities. GI Negative for nausea, vomiting, diarrhea, constipation, abdominal pain, and changes in bowel habits. Negative for dysuria, hematuria, increased frequency/urgency, and incontinence. Physical Exam Physical Exam: General: Patient was in acute distress/pain, non-toxic in appearance, AA&O x 4 HEENT: No elevated neck veins Heart: RRR, +S1/S2, no murmurs/rubs/gallops Lungs: CTAB, no rales/rhonchi/wheezes Abd: +BS, soft, NT/ND, no masses/organomegaly/ascites, surgical sites well approximated with no bleeding/drainage/erythema or dehiscence Ext: warm, 2+ pulses in UE/LE bilaterally, no clubbing/cyanosis or edema Neuro: speech intact, moving all extremities on command with equal strength 5/5 Results & Data Results & Data Vital Signs (Past 12 Hours) Vital Signs Temp Pulse Pulse Resp BP Pulse Ox O2 Del Method 07/20/23 12:12 68 21 166/81 H 93 Room Air 07/20/23 08:11 61 07/20/23 07:47 66 21 151/81 H 95 Room Air 07/20/23 03:30 36.8 C 59 L 20 151/77 H 96 Room Air
[2023-07-20] MEDS: ACETAMINOPHEN 325 MG TAB PO PRN (14:58)
[2023-07-20] MEDS: MoRPHine SULFATE 4 MG/ML 1 ML CARP\\VIAL IV STA (16:32)
[2023-07-20] MEDS: ACETAMINOPHEN 325 MG TAB PO SCH (17:26)
[2023-07-20] MEDS: KETOROLAC TROMETHAMINE 15 MG/ML VIAL IV SCH (17:38)
[2023-07-20 18:39] LABS: ANTI-Xa, UFH(UnfractionatedHep 0.22 IU/ml (0.3-0.7)
--- NOTE | 2023-07-20 18:57 | Billing Data ---
Date of Service July 20, 2023 Coding Level of Care Code 22346 SUB INP/OBS CARE MIN
--- NOTE | 2023-07-20 18:58 | Billing Data ---
Date of Service July 20, 2023 Coding Level of Care Code 71540 SUB INP/OBS CARE MIN
[2023-07-20] MEDS: APIXABAN 5 MG TABLET PO SCH (20:44)
[2023-07-20] MEDS ORDERED: ATORVASTATIN 40 MG TAB PO SCH (21:00)
--- NOTE | 2023-07-21 07:24 | Discharge Summary ---
Date of Service July 21, 2023 Admission HPI Per Admitting Provider Hakeem Bashir is a pleasant 62yo male with history of HLP presenting with bilateral PEs. Patient had robotic assisted right laparoscopic inguinal hernia repair performed by Dr. Deluna on 07/14/23. The surgery went well with no complications identified. Patient reports he has been doing well overall at home. He has been eating and drinking well, ambulating without difficulty and having normal bowel movements. He took Oxycodone for pain relief for the first 2-3 days post- op then was taking Advil occasionally. Today (07/19/23) he did not take anything for pain. Around 1800 patient returned from a walk and sat down in a chair and developed acute onset left sided abdominal and side pain. He reports this pain felt sharp and was worsened with deep breathing. He had some very slight cramping in his left calf but otherwise no complaints. He denies chest pain, palpitations, dizziness, syncope. Denies nausea, vomiting or diarrhea. In the ER he is afebrile, HD stable, NAD. ER Course: Morphine 4mg IV NSS x 500mL Heparin bolus and drip Morphine 2mg IV Admission Exam Per Admitting Provider Physical Exam: General: patient resting comfortably, NAD, non-toxic in appearance, AA&O x 4 Skin: warm, dry, no rashes or lesions HEENT: NC/AT, PERRL, EOMI, anicteric sclera, conjunctiva without injection, external ear normal to inspection and nontender, nares patent, moist mucus membranes, dentition intact, no oropharyngeal lesions, neck supple, trachea midline, no LAD, no thyromegaly, no JVD Heart: +S1/S2, regular, no m/r/g Lungs: equal air entry bilaterally, no rales/rhonchi/wheezes Abd: +BS, soft, NT/ND, no masses/organomegaly/ascites, surgical sites well approximated with no bleeding/drainage/erythema or dehiscence Ext: warm, 2+ pulses in UE/LE bilaterally, no clubbing/cyanosis or edema, very mild tenderness in left calf Neuro: nonfocal, patient AA&O x 4, speech intact, no facial droop, moving all extremities on command with equal strength 5/5 Principal Diagnosis Pulmonary emboli Discharge Exam Constitutional WD/WN, vitals as above Respiratory normal respiratory effort, lungs clear to auscultation Cardiovascular RRR, no murmur, no edema Gastrointestinal (Abdomen) normal bowel sounds, soft, nontender, no hepatosplenomegaly Neurologic moves all extremities and awake Speech / Cognition: normal speech and normal cognition Psychiatric A+Ox3, euthymic affect Discharge Data Allergies Allergy/AdvReac Type Severity Reaction Status Date / Time No Known Allergies Allergy Verified 07/19/23 22:11 Consultations 07/19/23 22:50 ED Decision to Admit Stat Ordered Studies 07/19/23 20:06 CT for pulmonary embolism PE [CT angio chest PE protocol] Stat Hospital Course (1) Pulmonary embolism, bilateral: (2) Chest pain, pleuritic: (3) Transaminitis: (4) Hyperlipidemia: (5) S/P inguinal hernia repair: Plan 62yo male with PMHx of HLP/HLD s/p robotic assisted inguinal hernia repair POD #5 presenting with acute onset pleuritic pain in the left side. Patient found to have bilateral PEs, possible pulmonary infarct on the right. 1) Pulmonary embolism, bilateral: Patient is afebrile, HD stable, adequate oxygenation on room air. PESI (Pulm Emb Severity Index) Class II - Low Risk. - BPs as high as 198/104 last night 2/2 pain likely - Continue heparin drip with transition to DOAC agent in AM. Likely will need 3-6 months of anticoagulation for first episode of VTE - most likely provoked in the setting of recent surgical intervention - Morphine PRN pain; Toradol, q6 hrs, 15 mg, BHARTI for pain; Tylenol, q4 hrs, 650 mg, BHARTI for pain - Discharge on Eliquis, 10 mg, BID for 6 more days, followed by: Eliquis, 5 mg, BID, 3-6 more months - For pain control, take Tylenol, 3000 mg/day and ibuprofen, 1200 mg/day (2) Transaminitis - resolved (AST, 28 and ALT, 48) Upon admission: mild elevation AST, 47 and ALT, 66 and AP, 114; TBili, normal; platelets and INR. - Unclear etiology. No prior liver concerns - If increasing, further workup to include imaging, acute hepatitis panel, acetaminophen level, ferritin, ASHOK, ASmAb, etc (3) Right inguinal hernia No pain at the surgical site. Wounds appear to be healing well. Discharged on 07/14/23. -Continue pain control as needed: morphine sulfate, 4mg, IV, q3h, PRN; acetaminophen, 650 mg, PO, q4h, PRN (4) Hyperlipidemia Chronic. Patient on Atorvastatin 40mg po qHS -Held until repeated LFTs, consider re-starting today or tomorrow Code status: Full code Disposition: Med-Tele DVT Prophylaxis: Heparin drip; consider starting DOAC Total Time Total Time Spent Total Time Spent (In Minutes): <30 Discharge Plan Discharge Items Patient Disposition: Home - Self-Care Reason For Visit: PULMONARY EMBOLI Discharge Diagnosis: pulmonary embolism Activity: Resume your previous activity Non-emergency contact: Primary Care Provider Call non-emergency contact if: your symptoms worsen and your pain is worsening Follow-up/Referrals: Ernestine Aguillon MD [Primary Care Provider] - 07/28/23 11:30 am Diet: Regular Addtl Attending Provider Instructions: You were admitted to the hospital for pulmonary emboli. You were treated with a heparin drip, morphine sulfate, toradol, Tylenol, and Eliquis. A discharge summary will be sent to your primary care physician to ensure c ontinuity of care. Please bring this discharge summary with you to your next office appointment so that your provider can review it at that time. Follow-up appointments: We have requested a follow-up appointment with your primary care physician within one week of discharge. Please call their office if you do not hear from them. Keep all your follow-up appointments as already scheduled. If you cannot make an appointment, notify your provider. Medications: Your medication list has been reviewed and reconciled upon discharge to ensure accuracy and continuity of care. An updated list of all your medications is included with your hospital discharge paperwork. Please review this list closely, and make note of any changes. We sent a new medication called Eliquis to your pharmacy. Take Eliquis 10 mg, twice a day, for 6 days. Then transition to taking Eliquis 5 mg, twice a day, for 3-6 months, as guided by your PCP. Take your medications as instructed; do not skip a dose of your medicines. Make sure all of your doctors know every medicine you are taking (including fvgv-bkj-pacdzic medicines, vitamins, and supplements). Call your primary care provider before taking any new medicines (including [id number] medicines, vitamins, and supplements), because some of these may interact with your current medications, or may make your symptoms worse. Tell your primary care provider if you cannot afford your medications. CONTACT YOUR PRIMARY CARE PROVIDER if you experience any of the following: worsening chest pain, rapid heart rate, rapid breathing rate coughing up blood, increased pain while breathing Difficulty following your treatment plan, or difficulty taking medications CALL 911 OR GO TO THE EMERGENCY DEPARTMENT if you experience any of the following: Sudden, severe abdominal pain or nausea/vomiting Severe chest pain, or chest pain that radiates (moves) to your jaw or arm Sudden, severe shortness of breath or difficulty breathing Thank you for allowing us to participate in your care Pending Studies at Discharge: No Stand-Alone Forms: [facility] [place], Smoking Cessation Medications and DC Order Prescriptions: New Eliquis 5 mg tablet 5 mg PO BID 36 Days Qty: 72 0RF Rx Instructions: Take 10 mg, twice a day, for the first 6 days (starting the night of 07/21/23) Take 5 mg, twice a day, for the next 24 days. Your PCP can then refill your Eliquis at 5 mg, twice a day for 3-6 months a ccording to their clinical judgement. Continued fluticasone propionate [Flonase Allergy Relief] 50 mcg/actuation spray,suspension 1 spray intranasal BID Qty: 15.8 8RF lorazepam [Ativan] 0.5 mg tablet 0.5 mg PO DAILY PRN (Reason: anxiety) Qty: 25 0RF multivitamin [Daily Multi-Vitamin] Tablet 1 tab PO QAM omega-3 fatty acids 1,000 mg capsule 1,000 mg PO QAM calcium carbonate [Calcium 600] 600 mg calcium (1,500 mg) tablet 600 mg PO QAM magnesium oxide 400 mg (241.3 mg magnesium) tablet 400 mg PO QAM atorvastatin 40 mg tablet 40 mg PO HS oxycodone 5 mg tablet 5 - 10 mg PO .[id number] PRN (Reason: pain, for initial therapy, max 6 tabs per day) Qty: 15 0RF Discharge Orders: Discharge Order (Routine); Ordered 07/21/23 Ordered By: Aristeo Hammond Admission Data Admit Date/Time: 07/19/23 23:14 Attending Provider: Hunter Hawthorne Admit Provider: Lesley Ellis Primary Care Provider: Ernestine Aguillon Other Providers: Lesley Ellis Other Interventions: Discharge Summary Assessment (RN) Last Done: 07/21/23 08:58 Supervising Physician Co-Signing Physician Notes I personally examined the patient and verified all corbett points of history and exam, discussed case, and agree with decision making with Dr Hammond Doing a lot better. Pain under better control. Has not needed morphine since yesterday. Feels like he will do okay with Tylenol and/or ibuprofen. Vitals noted, in general he is awake and alert pleasant no distress. HEENT normocephalic atraumatic mucous membranes moist. Breathing unlabored no accessory muscle use good effort. Skin shows no rashes no pallor or icterus. Neuro without focal deficits. PErisk of being recent surgery. Pain controlled, quite stable. Home on Eliquis.
--- NOTE | 2023-07-21 09:28 | Hospitalist Progress Note ---
Date of Service July 21, 2023 Assessment & Plan (1) Pulmonary embolism, bilateral: Plan: 62 YO M with a PSH of robotic assisted inguinal hernia repair POD #7 who presented with pleuritic pain on the left side. On imaging, he was found to have bilateral PEs and possible pulmonary infarct on the right side. He is hemodynamically stable and has adequate oxygenation on room air. He is PESI (Pulmonary Embolism Severity Index) Class II, so low risk. - Predisposing factor of surgery. - Patient admitted to medical with telemetry. Hemodynamically stable PE. Patient's pain is now stable. - Patient started on heparin drip on 07/18 in ED. - Transition was made to a direct oral anticoagulant (Eliquis) on 07/19 for 3-6 months. First dose was given on 07/19 at 8:44 pm. Would recommend patient to take Eliquis 10 mg twice per day for 7 days and then 5 mg twice per day for 3-6 months. - Tylenol Q4H and Toradol Q6H while inpatient for pain. - Oxycodone 5 mg PO [id number] PRN for pain outpatient if discharged. Otherwise, manage pain with OTC Tylenol. - F/U with PCP. - Monitor for recurrent thromboembolism and speak with patient about monitoring for pain/cramps and chest pain. Patient also advised to take it easier than normal and monitor himself for pain. (2) Transaminitis: Plan: - Mild elevation of AST, ALT, AP on 07/18 in the ED. Patient reported no ETOH or Tylenol Use - LFTs repeated on 07/19. AST, ALT, AP were all normal. (3) Hyperlipidemia: Plan: - Chronic - Patient on atorvastatin (4) S/P inguinal hernia repair: Plan: - No pain at site - Wounds healing well - Continue pain control as needed Plan Discharge: Discharge today on 07/20 Code status: Full code Disposition: Med-Tele DVT Prophylaxis: Starting DOAC Admission and Anticipated Discharge Date Admission Date: July 19, 2023 Subjective 62 YO M with a past surgical history of laparoscopic R inguinal repair on 07/14/23 presented to the ED on 07/18 for evaluation of left-sided chest pain. On chest CT, he was found to have scattered bilateral pulmonary emboli and no evidence of R heart strain. He was deemed to be PESI Class II-Low Risk. Weight- based heparin drip with bolus were ordered along with IV morphine for pain. On 07/19, he was transitioned to 10 mg of Eliquis. I spoke to patient at bedside. He reported that he feels a lot better and his pain is a 0/10. He said he did not have any pain until he was asked to breathe deeply for the nurse taking his vital signs. When she asked him, he said he felt a tiny tinge in his ribs. He said he slept a lot better. He has not had a dose of morphine since yesterday afternoon when he was given 4 mg at 15:25. The patient reported that he believes the Tylenol Q4H and Toradol Q6H are helping with any residual pain. When the patient was asked if he wants to go home today, he said yes please. He hasnt noticed any changes in his surgical scar and no current pain or issues with it. Review of Systems Review of Systems: Constitutional Negative for fever, chills, sweats, dizziness, unexpected sleep disturbances. Respiratory Negative for SOB and coughing. Positive for pain with deep inhalation; otherwise negative for chest pain. CV Negative for palpitations and edema in lower extremities. GI Negative for nausea, vomiting, diarrhea, constipation, abdominal pain, and changes in bowel habits. Negative for dysuria, hematuria, increased frequency/urgency, and incontinence. Physical Exam Physical Exam: General: NAD, non-toxic in appearance, AA&O x 4 Heart: RRR, +S1/S2, no murmurs/rubs/gallops Lungs: CTAB, no rales/rhonchi/wheezes Abd: +BS, soft, NT/ND, no masses/organomegaly/ascites, surgical sites well approximated with no bleeding/drainage/erythema or dehiscence Ext: warm, 2+ pulses in UE/LE bilaterally, no clubbing/cyanosis or edema Neuro: nonfocal, patient AA&O x 4, speech intact, no facial droop, moving all extremities on command with equal strength 5/5 Results & Data Results & Data Vital Signs (Past 12 Hours) Vital Signs Temp Pulse Pulse Pulse Resp BP BP 07/21/23 08:58 36.4 C L 54 L 55 L 12 138/80 134/77 07/21/23 08:54 07/21/23 08:00 36.4 C L 54 L 12 138/80 07/21/23 07:02 53 L 07/21/23 03:44 36.3 C L 55 L 20 134/77 07/21/23 01:06 62 07/20/23 23:36 36.7 C 62 20 133/75 Pulse Ox O2 Del Method 07/21/23 08:58 95 07/21/23 08:54 Room Air 07/21/23 08:00 95 Room Air 07/21/23 07:02 07/21/23 03:44 94 Room Air 07/21/23 01:06 07/20/23 23:36 94 Room Air
--- NOTE | 2023-07-21 17:31 | Billing Data ---
Date of Service July 21, 2023 Coding Level of Care Code 64050 IN/OBS DISCH 30 MIN/LESS
== END 2023-07-21 13:57 | disposition home or self-care (01) | DRG 301 ==
LOC: ED 18:51 → EDINP 23:14 → SUATTDRO 23:14 → 2N 23:45
DX: E78.5 Hyperlipidemia, unspecified; K40.90 Unilateral inguinal hernia, without obstruction or gangrene, not specified as recurrent; I26.99 Other pulmonary embolism without acute cor pulmonale; T81.718A Complication of other artery following a procedure, not elsewhere classified, initial encounter; R74.01 Elevation of levels of liver transaminase levels; Y83.8 Other surgical procedures as the cause of abnormal reaction of the patient, or of later complication, without mention of misadventure at the time of the procedure